=== PATIENT | female | born 1935 | race Two or more races ===

== ENCOUNTER 2021-06-21 07:26 | Outpatient (CLI) | payer OTHER ==
[~2021-06-21 07:26] MED LIST: METFORMIN HCL500 MG
== END 2021-06-21 07:27 | disposition home or self-care (01) ==
LOC: NUCLEAR 07:26
PROVIDERS: ATTEND Internal Medicine Cardiovascular Disease
DX: I25.6 Silent myocardial ischemia (principal); I50.1 Left ventricular failure, unspecified
CPT/HCPCS: 78452; 93017; A9500; J1250